=== PATIENT | female | born 2000 | race Caucasian/White ===

== ENCOUNTER 2024-04-03 16:01 | Emergency (ER) | payer MEDICARE, OTHER ==
[2024-04-03] MEDS ORDERED: Sodium Chloride 0.9% 20 ML SDV IV PRN (16:44)
[2024-04-03] MEDS ORDERED: Sodium Chloride 0.9% 2.5 ML Syringe FLUSH PRN (16:44)
[2024-04-03 17:03] LABS: BASOPHILS ABSOLUTE AUTO 0.02 K/uL (0.00-0.20); BASOPHILS PERCENT AUTO 0.2 % (0.0-1.0); EOSINOPHILS ABSOLUTE AUTO 0.17 K/uL (0.00-0.45); EOSINOPHILS PERCENT AUTO 1.5 % (0.0-6.0); HEMATOCRIT 30.6 % (37.0-47.0); HEMOGLOBIN 10.1 g/dL (12.0-16.0); IMMATURE GRAN PERCENT AUTO 0.9 % (0.0-0.4); LYMPHOCYTES ABSOLUTE AUTO 1.74 K/uL (1.00-4.80); LYMPHOCYTES PERCENT AUTO 15.6 % (24.0-44.0); MEAN CORPUSCULAR HEMOGLOBIN 28.5 pg (28.0-32.0); MEAN CORPUSCULAR VOLUME 86.4 fL (83.0-99.0); MEAN PLATELET VOLUME 8.7 fL (9.4-12.3); MONOCYTES ABSOLUTE AUTO 0.64 K/uL (0.00-0.80); MONOCYTES PERCENT AUTO 5.8 % (0.0-8.0); NEUTROPHILS ABSOLUTE AUTO 8.46 K/uL (1.80-7.70); PLATELET COUNT,PLT 323 K/uL (150-400); RED BLOOD CELL COUNT 3.54 M/uL (4.10-5.30); WHITE BLOOD CELL COUNT,WBC 11.13 K/uL (3.9-11.3)
[2024-04-03 17:13] LABS: BILIRUBIN,URINE NEGATIVE (NEGATIVE); COLOR,URINE YELLOW; GLUCOSE,URINE NEGATIVE (NEGATIVE); KETONES,URINE NEGATIVE (NEGATIVE); LEUKOCYTE ESTERASE,URINE SMALL (NEGATIVE); NITRITE,URINE NEGATIVE (NEGATIVE); OCCULT BLOOD,URINE LARGE (NEGATIVE); PROTEIN,URINE 30 mg/dL (NEGATIVE); UROBILINOGEN,URINE 0.2 EU/dL (<2.0)
[2024-04-03] MEDS: Lactated Ringers 2,500 ML IV ONE (17:15)
[2024-04-03] MEDS: cefTRIAXone 2 GM in Sodium Chloride 0.9% 50 ML IV STA (17:15)
[2024-04-03] MEDS: Sodium Chloride 0.9% 10 ML Syringe FLUSH PRN (17:16)
[2024-04-03] MEDS: Acetaminophen 500 MG Tab PO STA (17:16)
[2024-04-03 17:23] LABS: APPEARANCE,URINE SLT CLOUDY; EPITHELIAL CELLS,URINE FEW (NONE-FEW)
[2024-04-03 17:24] LABS: BACTERIA,URINE FEW (NEGATIVE); MUCUS,URINE LIGHT (NONE-MOD)
[2024-04-03 17:24] LABS: A/G RATIO 0.5 (0.9-1.6); ALBUMIN 2.3 g/dL (3.4-5.0); BILIRUBIN TOTAL 0.2 mg/dL (0.2-1.0); CALCIUM 9.1 mg/dL (8.5-10.1); CARBON DIOXIDE,CO2 28.6 mmol/L (21.0-32.0); CREATININE 0.8 mg/dL (0.6-1.0); EST CRCL DRUG DOSING (CG) 94.44 mL/min; PROTEIN TOTAL,TP 7.2 g/dL (6.4-8.2)
[2024-04-03 17:28] LABS: LACTIC ACID 0.5 mmol/L (0.4-2.0)
[2024-04-03] MEDS: Iopamidol 755 MG/ML 500 ML Multipack Bottle IVPUSH STA (18:07)
== END 2024-04-03 19:27 | disposition home or self-care (01) ==
LOC: MW.ED 16:01
DX: O99.73 Diseases of the skin and subcutaneous tissue complicating the puerperium (principal); L03.311 Cellulitis of abdominal wall
CPT/HCPCS: 36415; 71260; 74177; 80053; 81001; 83605; 85025; 87040; 87070; 87075; 87077; 87086; 87186; 87205; 96365; 99285; A9270; J0696; J3490; J7120; Q9967; 99283

== ENCOUNTER 2025-04-07 04:09 | Emergency (ER) | payer OTHER ==
[2025-04-07] MEDS: Ondansetron 4 MG Tab.DIS PO ONE (04:45)
[2025-04-07] MEDS: Ketorolac 30 MG/ML SDV IM ONE (04:47)
== END 2025-04-07 04:55 | disposition home or self-care (01) ==
LOC: MW.ED 04:09
DX: N61.0 Mastitis without abscess (principal); Z39.1 Encounter for care and examination of lactating mother; Z88.7 Allergy status to serum and vaccine; Z91.040 Latex allergy status; Z91.013 Allergy to seafood; Z79.899 Other long term (current) drug therapy
CPT/HCPCS: 96372; 99283; A9270; J1885